=== PATIENT | male | born 1960 | race Two or more races ===

== ENCOUNTER 2020-03-27 09:01 | Day surgery (SDC) | payer OTHER ==
[~2020-03-27 09:01] MED LIST: BIKTARVY 50-201 EACH PO
[2020-03-27] MEDS ORDERED: NEURONTIN300 MG PO (18:17)
[2020-03-27] MEDS ORDERED: MIRALAX17 GM PO (18:17)
[2020-03-27] MEDS ORDERED: TYLENOL ARTHRI650 MG PO (18:17)
[2020-03-27] MEDS ORDERED: ULTRAM50 MG PO (18:17)
== END 2020-03-27 20:45 | disposition home or self-care (01) ==
LOC: CIR.AMB 09:01
PROVIDERS: ATTEND Surgery
DX: K40.91 Unilateral inguinal hernia, without obstruction or gangrene, recurrent (principal); D17.4 Benign lipomatous neoplasm of intrathoracic organs; K42.9 Umbilical hernia without obstruction or gangrene; Z20.828 Contact with and (suspected) exposure to other viral communicable diseases

== ENCOUNTER 2020-08-01 14:41 | Outpatient (CLI) | payer OTHER ==
[~2020-08-01 14:41] MED LIST changes: +MIRALAX17 GM PO; +NEURONTIN300 MG PO; +TYLENOL ARTHRI650 MG PO; +ULTRAM50 MG PO
== END 2020-08-01 14:42 | disposition home or self-care (01) ==
LOC: PPH VACUNA 14:41
DX: Z23 Encounter for immunization (principal)

== ENCOUNTER 2021-11-26 09:11 | Emergency (ER) | payer OTHER ==
[~2021-11-26] VITALS: Ht 182.9 cm; Wt 90.7 kg
== END 2021-11-26 15:15 | disposition home or self-care (01) ==
LOC: ER 09:11
DX: R42 Dizziness and giddiness (principal)

== ENCOUNTER → 2025-04-15 | Emergency (ER) | payer OTHER ==
[~2025-04-15] VITALS: Ht 182.9 cm; Wt 89.8 kg
[~2025-04-15] MED LIST changes: +BENADRYL ALLERG50 MG PO; +DIPHENHYDRAMINE HCL 50 MG/ML VIAL 1ML IM ONE; +DIPHENHYDRAMINE HCL 50 MG/ML VIAL 1ML ONE; +METHYLPREDNISOLONE SOD SUCC 125 MG VIAL IM ONE; +METHYLPREDNISOLONE SOD SUCC 125 MG VIAL ONE; +PEPCID AC20 MG PO; +ZYRTEC10 MG PO
[2025-04-15 11:58] VITALS: BP 150/90; O2SAT 98
[2025-04-15 15:02] LABS: BASO % 0.9 % (0.1-1.2); EOS # 0.19 (0.04-0.54); EOS % 3.6 % (0.7-7.0); LYMPH # 2.14 (1.18-3.74); LYMPH % 40.0 % (19.3-53.1); MEAN PLATELET VOLUME 9.40 fl (9.4-12.4); MONO # 0.46 (0.24-0.82); MONO % 8.6 % (4.7-12.5); NEUT # 2.50 (1.56-6.13); NEUT % 46.7 % (34.0-71.1); RED CELL DISTRIBUTION WIDTH 12.0 % (11.6-14.4)
== END | disposition home or self-care (01) ==
LOC: ER 11:27
PROVIDERS: Student in an Organized Health Care Education/Training Program
DX: L50.8 Other urticaria (principal); Z21 Asymptomatic human immunodeficiency virus [HIV] infection status
CPT/HCPCS: 36415; 96372; 99282; J1200; J3490